=== PATIENT | male | born 1995 | race Caucasian/White ===

== ENCOUNTER 2020-12-23 15:52 | Emergency (ER) | payer OTHER ==
[2020-12-23] MEDS ORDERED: IBU600 MG PO (20:12)
== END 2020-12-23 20:55 | disposition home or self-care (01) ==
LOC: FER 15:52
DX: S90.32XA Contusion of left foot, initial encounter (principal); S60.212A Contusion of left wrist, initial encounter; S80.212A Abrasion, left knee, initial encounter; F17.290 Nicotine dependence, other tobacco product, uncomplicated; Z23 Encounter for immunization; V29.40XA Motorcycle driver injured in collision with unspecified motor vehicles in traffic accident, initial encounter; Y92.410 Unspecified street and highway as the place of occurrence of the external cause
CPT/HCPCS: 73130; 73560; 73630; 90471; 90715